=== PATIENT | male | born 1955 | race Caucasian/White ===

== ENCOUNTER 2018-03-04 15:39 | Emergency (ER) | payer MEDICAID ==
--- NOTE | 2018-03-04 17:48 | ED Physician Documentation ---
PD HPI MALE - Stated complaint Stated Complaint: PAIN IN BUTT, PRESSURE IN BUTT - Chief complaint Chief Complaint: General - History obtained from History obtained from: Patient - History of Present Illness Timing - onset: How many days ago (several) Timing - duration: Days Timing - details: Gradual onset, Still present Associated symptoms: Other (pain around resctum wiht feeling of swelling.). No: Dysuria, Urinary frequency Similar symptoms before: Has not had sx before Recently seen: Clinic (sent from office to ER for I&D.) Review of Systems Constitutional: denies: Fever, Chills GI: reports: Other (pain in rectal area, worse with sitting and wiping.). 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: Other (2 weeks S/P right orchiectomy) - Present Medications Home Medications: Ambulatory Orders Medication Instructions Recorded Confirmed Hydrocodone/Acetaminophen [[place] 1 each PO Q6H PRN #15 tablet 03/04/18 5-325 Tablet] Sulfamethox/Trimeth 800/160 1 each PO BID #14 tablet 03/04/18 [Bactrim Ds 800/160] - Allergies Allergies/Adverse Reactions: Allergies Allergy/AdvReac Type Severity Reaction Status Date / Time No Known Drug Allergies Allergy Verified 11/09/14 13:56 - Social History Does the pt smoke?: Yes Smoking Status: Current every day smoker Does the pt drink ETOH?: Yes Does the pt have substance abuse?: Yes - Immunizations Immunizations are current?: Yes Immunizations: TDAP >10years/unknown - POLST Patient has POLST: No PD ED PE NORMAL - Vitals Vital signs reviewed: Yes - General General: Alert and oriented X 3, Well developed/nourished - Cardiac Cardiac: RRR, No murmur - Respiratory Respiratory: Clear bilaterally - Abdomen Abdomen: Soft, Non tender - Rectal Rectal: Other (some hemorrhoids but not swollen nor hard. There is perirectal fullness with white pointing tissue and underlying firmness. Bedside U/S showing small fluid collection. Skin is red. Area very tender. ) - Derm Derm: Normal color, Warm and dry Results - Vitals Vitals: Oxygen O2 Source Room air Procedures - Abscess I&D (location) perirectal Preparation: Confirmed with ultrasound (about 1-2 cm diameter.), Lidocaine 1%, With epi Incision: Incised with scalpel, Purulent drainage, Irrigated. No: Packed, Cultu re obtained Other: Pt tolerated well, Dressing applied, Antibiotic prescribed Departure - Departure Disposition: 01 Home, Self Care Clinical Impression: Perirectal abscess Condition: Stable Record reviewed to determine appropriate education?: Yes Instructions: ED Aurelia Anal Abscess IandD Follow-Up: Josy Overton ARNP [Primary Care Provider] - Prescriptions: Hydrocodone/Acetaminophen [[place] 5-325 Tablet] 1 each PO Q6H PRN #15 tablet PRN Reason: Pain Sulfamethox/Trimeth 800/160 [Bactrim Ds 800/160] 1 each PO BID #14 tablet Comments: Warm soaks or wet compresses to the area to promote drainage out of the abscess. Ibuprofen or naproxen as needed for pains. Add Tylenol if needed. Add hydrocodone if needed. Bactrim antibiotic twice daily for a week for the infection. Recheck if not improved quite well over the next few days. Discharge Date/Time: 03/04/18 19:48
[2018-03-04] MEDS ORDERED: IBUPROFEN 800 MG TABLET PO STA (18:54)
[2018-03-04] MEDS ORDERED: SULFAMETH/TRIMETH DS 800/160 MG TABLET PO STA (18:54)
[2018-03-04 19:49] VITALS: BP 145/78
== END 2018-03-04 19:48 | disposition home or self-care (01) ==
LOC: ED 15:39
DX: K61.1 Rectal abscess (principal); F17.200 Nicotine dependence, unspecified, uncomplicated
CPT/HCPCS: 46040; 99283

== ENCOUNTER 2018-11-11 13:21 | Outpatient (CLI) | payer MEDICAID ==
--- NOTE | 2018-11-11 14:49 | MRI Report ---
Reason: SHOULDER JOINT PAIN,RIGHT Procedure Date: 11/11/2018 Accession Number: [id number] / [id number] Procedure: MRI - Shoulder RT W/O CPT Code: FULL RESULT: EXAM: RIGHT SHOULDER MRI WITHOUT CONTRAST EXAM DATE: 11/11/2018 02:10 PM. CLINICAL HISTORY: Right shoulder pain. COMPARISON: None. TECHNIQUE: Multiplanar, multisequence T1-weighted and fluid-sensitive sequences of the shoulder without contrast. Other: None. FINDINGS: Acromioclavicular Region: The acromion is type I. Small marginal osteophytes at the distal end of the clavicle and medial aspect of the acromion. Small subcortical cyst at the medial aspect of the acromion. The inferior aspect of the distal end of the clavicle minimally indents the bursal surface of the supraspinatus muscle tendon unit. The coracoacromial and coracoclavicular ligaments are intact. No subacromial/subdeltoid bursal fluid. Glenohumeral Region: No subluxation. No effusion or loose bodies. The articular cartilage is unremarkable. The glenohumeral ligaments and joint capsule are unremarkable. Bone Marrow: There is an approximately 3.6 x 3 x 2.6 cm, expansile, destructive mass within the lateral aspect of the scapular body and the glenoid neck. The mass is slightly hyperintense relative to muscle on T1-weighted images and T2-weighted images. There is periosteal thickening and edema at the scapular body, around the mass. There is edema within the musculature adjacent to the mass. There is a separate, approximately 1.5 x 0.8 x 0.9 cm lesion within the medial aspect of the scapular spine which is only imaged in the coronal and axial plane. Labrum: The labrum is unremarkable on this nonarthrographic study. Musculature/Rotator Cuff: The supraspinatus, infraspinatus, teres minor tendons are unremarkable. Small linear low-grade partial thickness intrasubstance insertional tear at the distal end of the subscapularis tendon. Biceps Tendon: There is a proximal long head biceps tendinosis. Other: The subcutaneous tissues are unremarkable. IMPRESSION: 1. An approximately 3.6 x 3 x 2.6 cm expansile, destructive lesion within the lateral aspect of the scapular body and glenoid neck. There is a smaller 1.5 x 0.8 x 0.9 cm lesion within the medial aspect of the scapular spine. The findings would be most concerning for metastatic disease or multiple myeloma. Multifocal primary bone neoplasm cannot be excluded. 2. Small low grade partial thickness intrasubstance insertional tear at the distal end of the subscapularis tendon. 3. Proximal long head biceps tendinosis. RADIA The call report notification system was initiated by Dr. Mark Rodriguez at 02:31 PM on 11/11/2018. The above call report findings were discussed with Yanelis Robbins by Dr. Mark Rodriguez at 02:47 PM on 11/11/2018.
== END 2018-11-11 13:22 | disposition home or self-care (01) ==
LOC: DI 13:21
PROVIDERS: ATTEND Physician Assistant Medical
DX: M75.81 Other shoulder lesions, right shoulder (principal); S46.811A Strain of other muscles, fascia and tendons at shoulder and upper arm level, right arm, initial encounter

== ENCOUNTER 2018-11-17 08:21 | Outpatient (CLI) | payer MEDICAID ==
[2018-11-17 09:01] LABS: ALBUMIN/GLOBULIN RATIO 1.1 (1.0-2.2); BILIRUBIN,TOTAL 0.2 mg/dL (0.2-1.0); CALCIUM 9.6 mg/dL (8.5-10.3); CREATININE 0.7 mg/dL (0.6-1.2); TOTAL PROTEIN 7.6 g/dL (6.7-8.2)
[2018-11-17 09:13] LABS: BASOPHILS # (AUTO) 0.1 10^3/uL (0.0-0.1); BASOPHILS % (AUTO) 0.6 %; EOSINOPHILS # (AUTO) 0.5 10^3/uL (0.0-0.7); HGB - HEMOGLOBIN 14.2 g/dL (14.0-18.0); LYMPHOCYTES # (AUTO) 1.5 10^3/uL (1.5-3.5); MEAN CORPUSCULAR HEMOGLOBIN 32.3 pg (27.0-31.0); MEAN CORPUSCULAR HGB CONC 33.6 g/dL (32.0-36.0); MEAN CORPUSCULAR VOLUME 95.9 fL (80.0-94.0); MEAN PLATELET VOLUME 9.7 fL (7.4-11.4); MONOCYTES # (AUTO) 0.9 10^3/uL (0.0-1.0); MONOCYTES % (AUTO) 9.6 %; NEUTROPHILS # (AUTO) 6.3 10^3/uL (1.5-6.6); NEUTROPHILS % (AUTO) 68.2 %; PLT - PLATELET COUNT 279 10^3/uL (130-450); WHITE BLOOD COUNT 9.3 x10^3/uL (4.8-10.8)
[2018-11-19 19:32] LABS: ALBUMIN 3.9 g/dL (3.8-4.8); ALPHA 1 GLOBULIN 0.4 g/dL (0.2-0.3); ALPHA 2 GLOBULIN 0.9 g/dL (0.5-0.9); BETA 1 GLOBULIN 0.4 g/dL (0.4-0.6); BETA 2 GLOBULIN 0.5 g/dL (0.2-0.5); GAMMA GLOBULIN 0.8 g/dL (0.8-1.7)
== END 2018-11-17 08:22 | disposition home or self-care (01) ==
LOC: LAB 08:21
PROVIDERS: ATTEND Physician Assistant Medical
DX: M89.9 Disorder of bone, unspecified (principal); Z12.5 Encounter for screening for malignant neoplasm of prostate
CPT/HCPCS: 36415; 80053; 84153; 84155; 84165; 85025

== ENCOUNTER 2018-11-17 08:49 | Outpatient (CLI) | payer MEDICAID ==
--- NOTE | 2018-11-17 09:40 | XRAY Report ---
Reason: Shoulder Joint Pain, Right Procedure Date: 11/17/2018 Accession Number: [id number] / [id number] Procedure: XR - Shoulder 3 View RT CPT Code: FULL RESULT: EXAM: RIGHT SHOULDER RADIOGRAPHY EXAM DATE: 11/17/2018 09:11 AM. CLINICAL HISTORY: Shoulder joint pain, right. COMPARISON: SHOULDER RT W/O 11/11/2018 1:54 PM. TECHNIQUE: 3 views. FINDINGS: Bones: There is a lucent cortical lesion of the lateral scapula immediately inferior to the glenoid. This correlates to a mass noted on recent MRI. A second mass seen on MRI in the medial scapular spine is not seen on current imaging and may be obscured. Joints: The glenohumeral and acromioclavicular joint spaces appear within normal limits. Soft tissues: The visualized hemithorax is unremarkable. No soft tissue swelling. IMPRESSION: Right lateral scapular cortical destruction consistent with mass inferior to the right glenoid. RADIA
== END 2018-11-17 08:50 | disposition home or self-care (01) ==
LOC: DI 08:49
PROVIDERS: ATTEND Physician Assistant Medical
DX: M25.511 Pain in right shoulder (principal); M89.9 Disorder of bone, unspecified; Z12.5 Encounter for screening for malignant neoplasm of prostate
CPT/HCPCS: 36415; 80053; 84153; 84155; 84165; 85025

== ENCOUNTER 2018-12-04 15:29 | Outpatient (CLI) | payer MEDICAID ==
--- NOTE | 2018-12-04 17:07 | MRI Report ---
Reason: LOW BACK PAIN Procedure Date: 12/04/2018 Accession Number: [id number] / [id number] Procedure: MRI - Lumbar Spine W/O CPT Code: FULL RESULT: EXAM: MRI LUMBAR SPINE WITHOUT CONTRAST EXAM DATE: 12/04/2018 04:23 PM. CLINICAL HISTORY: LOW BACK PAIN. COMPARISON: None. TECHNIQUE: Multiplanar, multisequence T1-weighted and fluid-sensitive sequences of the lumbar spine from T12 to S1 without contrast. Other: None. FINDINGS: Spinal Canal: The conus terminates at L1. The conus medullaris and cauda equina are unremarkable. Alignment: Grade 1 L5 on S1 spondylolisthesis associated with bilateral L5 spondylolysis. Bone Marrow: Five [id number] lumbar vertebral bodies are assumed. Multiple regions of abnormal loss of fatty marrow signal replaced by abnormal T2 hyperintense signal. Near complete replacement of normal L3 vertebral body fatty marrow signal which also involves the anterior bilateral L3 pedicles. Left of midline 14 mm T1 hypointense lesion in the upper sacrum at the S1 level. 7 mm abnormal T1 hypointense nodule of the T12 vertebral body. 11 mm focus of abnormal T1 hypointensity of the right anterior iliac bone near the anterior margin of the right SI joint. [employer] Manager image 1 of series 101 raises the possibility of a 3 cm region of asymmetric segmental loss of fatty marrow signal in the lateral left iliac bone, but this is not adequately characterized for the purposes of diagnosis. Minimal age-indeterminate L3 vertebral body superior endplate concavity or focal defect, possibly a Schmorl's node. Minimally displaced superior endplate pathologic compression fracture is not entirely ruled out however. The remaining visualized vertebral bodies show no acute height loss. Disk Levels/Facets: T12-L1: No significant stenosis. Minimal to mild chronic degenerative changes. L1-L2: Mild disk degeneration and facet arthropathy. Anterior marginal spurring. Shallow circumferential disk bulge. No signal within stenosis. L2-L3: Minimal to mild disk degeneration. Mild facet arthropathy. Shallow circumferential disk bulge. No significant stenosis. L3-L4: Mild to moderate disk degeneration. Mild facet arthropathy. Minimal marginal spurring. Shallow circumferential disk bulge. Patent central canal. Mild bilateral foraminal stenosis. L4-L5: Minimal to mild disk degeneration. Mild facet arthropathy. Circumferential disk bulge. Patent central canal. Mild to moderate bilateral foraminal stenosis. L5-S1: Mild to moderate disk degeneration. Minimal facet arthropathy. Grade 1 L5 on S1 spondylolisthesis from bilateral L5 spondylolysis. Circumferential disk bulge. Patent central canal. Moderate to marked deformity and stenosis of both neural foramina, probably worse on the left than the right. Musculature: Mild amorphous increased T2 signal bilaterally in the mid and lower lumbar spine. There is also a small amount of indistinct soft tissue T2 hyperintensity near the T10 spinous process. Other: Suspicion of prostate enlargement on the coronal visual developer view, but this is indeterminate. IMPRESSION: 1. Findings are suspicious for multifocal bone metastasis. 2. Grade 1 L5 on S1 spondylolisthesis from bilateral L5 spondylolysis. 3. Moderate to marked stenosis and deformity of both L5-S1 neural foramina, left greater than right. 4. Additional bilateral foraminal stenosis is notable at L3-L4 and L4-L5 levels. 5. No significant central canal stenosis. 6. Shallow L3 endplate concavities, more likely chronic than acute but indeterminate. 7. Mild amorphous posterior paraspinal muscle T2 hyperintensity. This might represent muscle strain or nonspecific myositis. Comment: The following findings are so common in adults without low back pain that while we report their presence, they must be interpreted with caution and in the context of the clinical situation. (Reference Jarvik et al, Spine 2001) Prevalence of findings in patients without low back pain: Disk degeneration (any evidence): 92% Disk desiccation/T2 signal loss: 83% Disk height loss: 56% Disk bulge: 64% Disk protrusion: 32% Annular tear/high intensity zone: 38% RADIA The call report notification system was initiated by Dr. Ace Chapman at 04:51 PM on 12/04/2018. The above call report findings were discussed with Dr. Christine Hernandez by Dr. Ace Chapman at 04:56 PM on 12/04/2018.
== END 2018-12-04 15:30 | disposition home or self-care (01) ==
LOC: DI 15:29
PROVIDERS: ATTEND Family Medicine
DX: M51.36 Other intervertebral disc degeneration, lumbar region (principal); M48.061 Spinal stenosis, lumbar region without neurogenic claudication; M47.816 Spondylosis without myelopathy or radiculopathy, lumbar region; M51.37 Other intervertebral disc degeneration, lumbosacral region; M48.07 Spinal stenosis, lumbosacral region; M43.17 Spondylolisthesis, lumbosacral region; G95.9 Disease of spinal cord, unspecified
CPT/HCPCS: 72148

== ENCOUNTER 2018-12-11 11:51 | Outpatient (CLI) | payer MEDICAID | END 2018-12-11 11:52 | disposition critical access hospital (66) | LOC: EMS 11:51 | PROVIDERS: ATTEND Surgery | DX: M54.5 Low back pain (principal) | CPT/HCPCS: A0425; A0429; A0999 ==

== ENCOUNTER 2018-12-11 16:38 | Outpatient (CLI) | payer MEDICAID | END 2018-12-11 16:39 | disposition short-term general hospital (02) | LOC: EMS 16:38 | PROVIDERS: ATTEND Surgery | DX: M54.9 Dorsalgia, unspecified (principal) | CPT/HCPCS: A0425; A0426; A0999 ==